=== PATIENT | female | born 1950 | race Caucasian/White ===

== ENCOUNTER 2019-01-03 10:03 | Day surgery (SDC) | payer MEDICARE, OTHER ==
[~2019-01-03] VITALS: Ht 142.2 cm; Wt 44.4 kg
[2019-01-03 10:42] VITALS: Ht 142.2 cm; Wt 44.4 kg
[2019-01-03] MEDS ORDERED: SUCRALFATE (10:46)
[2019-01-03] MEDS ORDERED: METRONIDAZOLE (10:46)
[2019-01-03 11:17] VITALS: BP 103/60; PULSE 72; RESP 12
--- NOTE | 2019-01-03 11:33 | PREAC ---
Date/Time of Note Date/Time of Note DATE: 01/03/19 TIME: 11:31 Anesthesia Eval and Record Evaluation Time Pre-Procedure Interview DATE: 01/03/19 TIME: 11:31 Age 68 Sex female NPO: 8 hrs Preoperative diagnosis PYLORIC STENOSIS Planned procedure EGD Past Medical History Past Medical History: Includes Heme: Other (LYMPHOMA) Surgery & Anesthesia Issues No known issue Meds Anticoagulation: No Beta Juanito within 24 hr: No Reason Beta Juanito not given: Pt. not on B-Juanito Reported Medications [Metronidazole] No Conflict Check 01/03/19 [Sucralfate] No Conflict Check 01/03/19 Meds reviewed: Yes Allergies Coded Allergies: No Known Allergy (Unverified , 01/03/19) Allergies Reviewed: Yes Labs/Studies Labs Reviewed: Reviewed by anesthesiologist test: N/A Studies: ECG, CXR Pre-procedure Exam Airway: Adequate mouth opening, Adequate thyromental dist Mallampati: Mallampati I Teeth: Normal Lung: Normal Heart: Normal ASA Physical Status ASA physical status: 2 Emergency: None Planned Anesthetic General/MAC: MAC Planned Pain Management Parenteral pain med Pre-operative Attestations Prior to commencing anesthesia and surgery, the patient was re-evaluated, there was verification of: *The patient's identity *The results of appropriate recent lab work and preoperative vital signs *The above evaluation not changing prior to induction *Anesthetic plan, risk benefits, alternative and complications discussed with patient/family; questions answered; patient/family understands, accepts and wishes to proceed. ANGELA BERNARD Jan 03, 2019 11:33
[2019-01-03] MEDS ORDERED: LIDOCAINE 2% (SDV) 5 ML INJ ONE (11:37)
[2019-01-03] MEDS ORDERED: PROPOFOL 40 ML ONE (11:37)
[2019-01-03] MEDS ORDERED: ONDANSETRON 4 MG INJ IV PRN (12:00)
[2019-01-03] MEDS ORDERED: FENTAnyl 50 MCG/ML VIAL IV PRN (12:00)
[2019-01-03] MEDS ORDERED: LABETALOL HCL 20MG INJ IV PRN (12:00)
[2019-01-03] MEDS ORDERED: EPHEDrine SULFATE 50 MG/5 ML SYG IV PRN (12:00)
[2019-01-03] MEDS ORDERED: hydrALAzine 20 MG INJ IV PRN (12:00)
--- NOTE | 2019-01-03 12:21 | PAC ---
Date/Time of Note Date/Time of Note DATE: 01/03/19 TIME: 12:20 Post-Anesthesia Notes Post-Anesthesia Note Last documented vital signs Vital Signs Date Temp Pulse Resp B/P (MAP) Pulse Ox O2 O2 Flow FiO2 Time Delivery Rate 01/03/19 97.5 72 12 103/60 98 Room Air 1220 (74) Activity: WNL Respiratory function: WNL Cardiovascular function: WNL Mental status: Baseline Pain reasonably controlled: Yes Hydration appropriate: Yes Nausea/Vomiting absent: Yes ANGELA BERANRD Jan 03, 2019 12:21
[2019-01-03 12:49] VITALS: BP 130/66; PULSE 64; RESP 18
== END 2019-01-03 15:45 | disposition home or self-care (01) ==
LOC: GIL 10:03
PROVIDERS: ATTEND Internal Medicine Gastroenterology
DX: K31.89 Other diseases of stomach and duodenum (principal)